=== PATIENT | female | born 1955 | race Caucasian/White ===

== ENCOUNTER 2020-01-24 09:21 | Outpatient (CLI) | payer BC, SELFPAY ==
--- NOTE | ~2020-01-24 | MM_ITS ---
EXAMINATION: MM screening jessie BI w cricket HISTORY: Screening mammogram TECHNIQUE: Craniocaudal and mediolateral oblique 3-D tomosynthesis images were obtained and synthetic 2-D images were generated. Bilateral rotated lateral CC views. ....CAD analysis was submitted and in terpreted. COMPARISON: 01/21/2019, 01/01/2018, 12/30/2016 bilateral digital screening mammogram examinations BREAST PARENCHYMAL COMPOSITION: The breasts are heterogeneously dense, which may obscure small masses . FINDINGS: There is no evidence of suspicious mass, calcification, or architectural distortion to sugg est malignancy in either breast. There has been no suspicious interval change. IMPRESSION: 1. No mammographic evidence of malignancy. 2. Recommend routine screening mammography in one year. BI-RADS Category 1: Negative Reviewed, dictated and finalized at location A.
== END 2020-01-24 09:22 | disposition home or self-care (01) ==
PROVIDERS: PCP Family Medicine; Visit Provider Family Medicine
DX: Z12.31 Encounter for screening mammogram for malignant neoplasm of breast (principal)
CPT/HCPCS: 77063; 77067

== ENCOUNTER 2020-09-29 13:38 | Outpatient (CLI) | payer MEDICARE, BC, SELFPAY ==
--- NOTE | ~2020-09-29 | XR_ITS ---
XR pelvis min 3V DATE: 09/29/2020 14:05 INDICATION: Pelvic pain TECHNIQUE: AP and oblique views of pelvis COMPARISON: None FINDINGS: There is minimal anterior offset of the left pubic symphysis compared to the right. The sac roiliac joints appear normal. Hip joints are symmetric and well preserved. No pelvic fracture or bone destruction is detected. There is mild levoscoliosis and degenerative disc disease at the lumbar spine. Bilateral calcified pelvic phleboliths. IMPRESSION: No significant abnormality of the pelvis Reviewed, dictated and finalized at location B. EL MACHINE OPERATOR
--- NOTE | ~2020-09-29 | CT_ITS ---
EXAMINATION: CT pelvis wo con DATE: 09/29/2020 14:12 INDICATION: Left hip bursitis. TECHNIQUE: Computed tomography (CT) of the pelvis was performed without intravenous contrast. Automat ed exposure control and iterative reconstruction technique were employed. The dose-length product was 183.13 mGy-cm. COMPARISON: Pelvis radiograph 09/29/2020 FINDINGS: There is lumbar levocurvature and moderate spondylosis. No fracture. There is a hemangioma in S1. There is mild osteoarthritis of the hips. There is mild bilateral trochanteric bursitis. IMPRESSION: 1. Mild bilateral trochanteric bursitis. 2. Mild osteoarthritis of the hips. Reviewed, dictated and finalized at location A. WELDER APPRENTICE
== END 2020-09-29 13:39 | disposition home or self-care (01) ==
PROVIDERS: PCP Family Medicine; Visit Provider Family Medicine
DX: M71.552 Other bursitis, not elsewhere classified, left hip (principal); M16.12 Unilateral primary osteoarthritis, left hip
CPT/HCPCS: 72190; 72192

== ENCOUNTER 2021-01-25 09:03 | Outpatient (CLI) | payer MEDICARE, SELFPAY ==
--- NOTE | ~2021-01-25 | MM_ITS ---
EXAMINATION: MM screening jessie BI w cricket HISTORY: Screening TECHNIQUE: Craniocaudal and mediolateral oblique 3-D tomosynthesis images were obtained and synthetic 2-D images were generated. CAD analysis was submitted and interpreted. COMPARISON: Comparison to multiple prior studies sequentially, with oldest reviewed study dated 12/2015. BREAST PARENCHYMAL COMPOSITION: The breasts are heterogenously dense, which may obscure small masses. FINDINGS: There is no evidence of suspicious mass, calcification, or architectural distortion to sugg est malignancy in either breast. There has been no suspicious interval change. IMPRESSION: 1. No mammographic evidence of malignancy. 2. Recommend routine screening mammography in one year. BI-RADS Category 1: Negative Reviewed, dictated and finalized at location A.
== END 2021-01-25 09:04 | disposition home or self-care (01) ==
LOC: ANHIMG 09:06
PROVIDERS: PCP Family Medicine; Visit Provider Family Medicine
DX: Z12.31 Encounter for screening mammogram for malignant neoplasm of breast (principal)
CPT/HCPCS: 77063; 77067

== ENCOUNTER 2022-01-28 07:23 | Outpatient (CLI) | payer MEDICARE, SELFPAY ==
--- NOTE | ~2022-01-28 | MM_ITS ---
EXAMINATION: MM screening jessie BI w cricket HISTORY: Screening mammogram TECHNIQUE: Craniocaudal and mediolateral oblique 3-D tomosynthesis images were obtained and synthetic 2-D images were generated. Bilateral rotated lateral CC views. CAD analysis was submitted and interp reted. COMPARISON: 01/25/2021, 01/24/2020, 01/12/2019 bilateral screening mammogram examinations BREAST PARENCHYMAL COMPOSITION: The breasts are heterogeneously dense, which may obscure small masses . FINDINGS: There are bilateral mammographic asymmetries. Bilateral diagnostic mammography is recommend ed, with ultrasound if required IMPRESSION: 1. Bilateral mammographic asymmetries 2. Bilateral diagnostic mammography is recommended, with ultrasound if required BI-RADS Category 0: Incomplete: Needs additional imaging evaluation. Reviewed, dictated and finalized at location A.
--- NOTE | ~2022-01-28 | DEXA_ITS ---
Bone Density Report Name: RACHNA PETTY Age: 66 Sex: Female Ethnicity: White Date of : 1955 Indication: osteopenia; prior fracture; hysterectomy; postmenopausal Referring Provider: SAMANTHA PRADHAN Study: Bone densitometry was performed. Exam Date: January 28, 2022 Accession number: [id number] Bone Density: Region BMD T-score Z-score Classification AP Spine(L1, L2) 0.883 -0.9 0.9 Normal Femoral Neck (Left) 0.700 -1.3 0.2 Osteopenia Total Hip (Left) 0.721 -1.8 -0.5 Osteopenia Femoral Neck (Right) 0.703 -1.3 0.3 Osteopenia Total Hip (Right) 0.761 -1.5 -0.2 Osteopenia Total Hip Mean 0.741 -1.7 -0.4 Osteopenia World Health Organization criteria for BMD impression classify patients as: Normal (T-score at or above -1.0), Osteopenia (T-score between -1.0 and -2.5), or Osteoporosis (T-score at or below -2.5). 10-year Fracture Risk(1): Major Osteoporotic Fracture 14% Hip Fracture 1.4% Reported Risk Factors: [place] (), Neck BMD=0.700, BMI=24.3, previous fracture (1) FRAX(R) Version 3.08. Fracture probability calculated for an untreated patient. Fracture probability may be lower if the patient has received treatment. Previous Exams: Region Exam Age BMD T-score BMD Change BMD Change Date g/cm2 vs Baseline vs Previous AP Spine (L1-L2) 01/28/2022 66 0.883 -0.9 0.063 (7.7%)* 0.063 (7.7%)* 01/01/2018 62 0.819 -1.5 Total Hip(Left) 01/28/2022 66 0.721 -1.8 0.006 (0.9%) 0.006 (0.9%) 01/01/2018 62 0.715 -1.9 Total Hip(Right) 01/28/2022 66 0.761 -1.5 0.005 (0.6%) 0.005 (0.6%) 01/01/2018 62 0.756 -1.5 *Denotes significance at 95% confidence level, LSC for AP Spine = 0.022 g/cm2, LSC for Total Hip = 0.027 g/cm2 Clinical Information Provided by Patient: Has had a low trauma fracture Has used the following medications: Vitamin D, Calcium Has the following medical conditions: Hysterectomy Patient maximum height was 63 Menopause Age: 35 Drinks caffeinated beverages Onset of menses at age 14 Number of children 3 Impression: The patient has low bone mass, based on the Left Total Hip T-score. The patient has an estimated ten-year risk of hip fracture of 1.4% and an estimated ten-year risk of major fracture of 14%, based on the WHO FRAX algorithm. The patient has risk factors, including: previous fracture. No significant bone loss was observed. Discussion: BONE DENSITY IS LOW AT ONE OR MORE SKEL
== END 2022-01-28 07:24 | disposition home or self-care (01) ==
PROVIDERS: PCP Family Medicine; Visit Provider Family Medicine
DX: Z12.31 Encounter for screening mammogram for malignant neoplasm of breast (principal); Z78.0 Asymptomatic menopausal state; R92.8 Other abnormal and inconclusive findings on diagnostic imaging of breast; M85.852 Other specified disorders of bone density and structure, left thigh; M85.851 Other specified disorders of bone density and structure, right thigh
CPT/HCPCS: 77063; 77067; 77080

== ENCOUNTER 2022-02-02 12:01 | Outpatient (CLI) | payer MEDICARE, SELFPAY ==
--- NOTE | ~2022-02-02 | MMUS_ITS ---
EXAMINATION: MM diagnostic jessie BI w cricket, US breast BI complete HISTORY: Follow-up bilateral breast asymmetries TECHNIQUE: Additional 3-D tomosynthesis images of the breasts were performed and synthetic 2-D images were generated. CAD analysis was submitted and interpreted. High resolution bilateral complete breas t ultrasound was performed. COMPARISON: Comparison to multiple prior studies sequentially, with oldest reviewed study dated 03/2017. BREAST PARENCHYMAL COMPOSITION: The breasts are heterogenously dense, which may obscure small masses FINDINGS: MAMMOGRAPHIC FINDINGS: There are no suspicious masses, calcifications or architectural distortion in either breast to sugges t malignancy. ULTRASOUND: Complete bilateral US of all 4 quadrants of the breasts and retroareolar region was reviewed. Right breast ultrasound: At 6:00, 3 cm from the nipple, there is a 2.5 mm cyst. Left breast: At 8:00, 2 cm from the nipple, there is a cluster of microcysts measuring 7 x 6 x 2 mm, benign. IMPRESSION: 1. No evidence for malignancy in either breast. 2. Routine yearly screening mammogram and regular clinical breast examination are recommended. BI-RADS Category 2: Benign finding(s). Reviewed, dictated and finalized at location A. IMPRESSION: 1. No evidence for malignancy in either breast. 2. Routine yearly screening mammogram and regular clinical breast examination a re recommended. BI-RADS Category 2: Benign finding(s).
== END 2022-02-02 12:02 | disposition home or self-care (01) ==
LOC: ANHIMG 12:02
PROVIDERS: PCP Family Medicine; Visit Provider Physician Assistant
DX: R92.8 Other abnormal and inconclusive findings on diagnostic imaging of breast (principal)
CPT/HCPCS: 76641; 77062; 77066; G0279

== ENCOUNTER 2022-04-26 07:27 | Outpatient (CLI) | payer MEDICARE, SELFPAY ==
--- NOTE | ~2022-04-26 | MR_ITS ---
EXAMINATION: MR pelvis wo con DATE: 04/26/2022 08:29 INDICATION: Bilateral hip and leg pain. TECHNIQUE: Magnetic resonance imaging (MRI) of the dose was performed without intravenous contrast. S equences included axial T1-weighted FSE, axial T2-weighted FS FSE, axial fluid sensitive FSE STIR, co koffi T1-weighted FSE, coronal T2-weighted FS FSE, sagittal T1-weighted FSE, sagittal T2-weighted FS FSE and sagittal fluid sensitive FSE STIR. COMPARISON: Radiographs dated 04/14/2022 FINDINGS: 5 degrees lumbar levocurvature. And 3 mm retrolisthesis L3 on L4 and 6 mm anterolisthesis L4 on L5. L umbar spondylosis with moderate disc height loss at both L3-L4 and L4-L5. Lower lumbar facet osteoart hritis, severe on the left at L4-L5 and moderate severity at the remaining facet joints from L3-L4 th rough L5-S1. Moderate bilateral neural foraminal stenosis at L3-L4 and L4-L5. Mild to moderate bilate ral neural from stenosis at L2-L3 and. Minimal neural from stenosis bilaterally at L5-S1. There is na rrowing of the lateral recesses bilaterally at L4-L5 which exerts mass effect upon the traversing chantelle ateral S1 nerve roots. Normal alignment at the hips and pelvis. No fracture or suspected avascular necrosis. T1 and T2 hyper intense hemangioma at S1. Marrow signal is otherwise normal throughout. Bilateral hip joint spaces ap pear relatively preserved with normal acetabular labrum. Symmetric physiologic amount of fluid in bot h hip joints. The bilateral iliopsoas, proximal hamstring and gluteal tendons are normal. No abnormal increased fluid signal at the greater trochanters to suggest trochanteric bursitis. Large amount of stool at the cecum. Visualized bowels are otherwise unremarkable. The uterus is not identified and vincent s likely been surgically resected. Bladder is normal. No pathologically enlarged pelvic or inguinal l ymphadenopathy. IMPRESSION: 1. Mild lumbar levocurvature with moderate spondylosis. 2. Normal bilateral hips with no trochanteric bursitis. Reviewed, dictated and finalized at location A.
== END 2022-04-26 07:28 | disposition home or self-care (01) ==
PROVIDERS: PCP Family Medicine; Visit Provider Orthopaedic Surgery
DX: M70.72 Other bursitis of hip, left hip (principal); M70.71 Other bursitis of hip, right hip; M47.896 Other spondylosis, lumbar region; M16.0 Bilateral primary osteoarthritis of hip
CPT/HCPCS: 72195

== ENCOUNTER 2023-01-16 10:05 | Day surgery (SDC) | payer MEDICARE, SELFPAY ==
[2022-12-20 14:18] VITALS: BMI 24.7
[2023-01-02 12:55] VITALS: BMI 23.8
[2023-01-16 10:25] VITALS: BP 115/81; PULSE 69; RESP 20; TEMP 36.6; O2SAT 99
[2023-01-16] MEDS: LACTATED RINGERS 1,000 ML 150 ML IV CONT (10:41)
--- NOTE | 2023-01-16 10:59 | WPDANESEPPF ---
Anes - Initial Pre Proc Eval Procedure: Operation Date: 01/16/23 11:30 Proposed Procedures p Diagnostic Colonoscopy - Dex Kaplan MD Date/Time: 01/16/23 10:59 Surgeon: Dex Kaplan MD Pre Op Diagnosis: Family HX of Malignant Neoplasm of Digestive Organ Patient Data Age: 67 Gender: F Height: 1.6 m Weight: 62 kg Last Vital Signs Temp 36.6 C 01/16/23 10:25 Pulse 69 01/16/23 10:25 Resp 20 01/16/23 10:25 BP 115/81 01/16/23 10:25 Pulse Ox 99 01/16/23 10:25 O2 Del Method Room Air 01/16/23 10:25 Allergies Allergy/AdvReac Type Severity Reaction Status Date / Time codeine Allergy Unknown Nausea Verified 01/16/23 10:42 dextromethorphan Allergy Unknown Nausea Verified 01/16/23 10:42 [Robafen DM Cough-Chest Congest] erythromycin base Allergy Unknown Nausea Verified 01/16/23 10:42 guaifenesin Allergy Unknown Other Verified 01/16/23 10:42 minocycline Allergy Unknown neurologic Verified 01/16/23 10:42 pseudoephedrine Allergy Unknown Nausea Verified 01/16/23 10:42 [Virtussin DAC] Home Medications Medication Instructions Recorded Confirmed Type biotin 5 mg capsule 5 mg PO DAILY 03/03/22 01/16/23 History calcium carbonate 600 mg-vitamin 1 cap PO DAILY 03/03/22 01/16/23 History D3 12.5 mcg (500 unit) capsule (Calcium 600 with Vitamin D3) lactobacillus combination no.9 4 4,000 mmu cells PO DAILY 03/03/22 01/16/23 History billion cell capsule (Adult 50 Plus Probiotic) multivitamin (Daily Multi-Vitamin 1 tablet PO DAILY 03/03/22 01/16/23 History tablet) fluoxetine 20 mg capsule See Rx Instructions .Route 04/12/22 01/16/23 Rx .COMPLEX #90 caps levothyroxine 75 mcg tablet See Rx Instructions .Route 10/24/22 01/16/23 Rx .COMPLEX #90 tabs sodium,potassium,mag sulfates 17.5 See Rx Instructions PO .COMPLEX 12/20/22 01/16/23 Rx gram-3.13 gram-1.6 gram oral soln #354 mL (Suprep Bowel Prep Kit) estradiol 0.5 mg tablet 0.5 mg PO 3XW 01/02/23 01/16/23 History Patient hx anesthesia problems: none Family hx anesthesia problems: none Results Review: All pre-operative results and documents have been reviewed as part of the pre-operative evaluation. [facility] Past Medical History Medical History Anxiety Chest pain Hip pain, bilateral History of postoperative nausea and vomiting History of stress test Hypothyroidism Retention cyst of tonsil Right knee pain Right rotator cuff tendinitis Tonsil stone Tonsillitis Surgical History Surgical History H/O elbow surgery H/O: section H/O: hysterectomy Family History Family History Father Diabetes mellitus Family history of coronary artery disease Family history of cardiovascular disease Acute myocardial infarction Mother Patient's mother is , Onset Age: 78 Carcinoma of colon Diabetes mellitus Hypertension Family history of cardiovascular disease Social History Social History Smoking status: Never smoker Alcohol intake: never Substance use: never Substance use type: does not use Living arrangements: with family Spiritual care concerns: No Anes - Eval Final PreProcedure Day of Procedure 01/16/23 10:59 Patient weight: normal Heart: regular rate and rhythm Lungs: clear to auscultation Airway: Mallampati scale class II Neurological: alert and oriented Last oral intake: >/= 8 hours ASA classification: II Emergent: no Anesthetic plan: proceed Anesthesia type and monitoring: general GIVS and standard monitoring Results Review: All pre-operative results and documents have been reviewed as part of the pre-operative evaluation. Informed Consent: The patient's anesthetic plan and its attendant risks and benefits were discussed with nj
--- NOTE | 2023-01-16 11:03 | PM.HPGS ---
History of Present Illness History of Present Illness Consent: Risks, benefits, and alternatives have been discussed and questions answered. Patient agrees to proceed with procedure. Chief complaint: Family HX of Malignant Neoplasm of Digestive Organ Narrative: Tiki Phillips is a 67 year old female Presents for colonoscopy. Patient reports that her own weight appetite and bowel movements are normal. Patient denies abdominal pain. She has had no bleeding. Family history is significant that her mother had colon cancer. Patient presents today for surveillance colonoscopy. Previous exam 5 years ago was unremarkable. Review of Systems Review of Systems: Review of systems noncontributory. [facility] Past Medical History Medical History Anxiety Chest pain Hip pain, bilateral History of postoperative nausea and vomiting History of stress test Hypothyroidism Retention cyst of tonsil Right knee pain Right rotator cuff tendinitis Tonsil stone Tonsillitis Surgical History Surgical History H/O elbow surgery H/O: section H/O: hysterectomy Family History Family History Father Diabetes mellitus Family history of coronary artery disease Family history of cardiovascular disease Acute myocardial infarction Mother Patient's mother is , Onset Age: 78 Carcinoma of colon Diabetes mellitus Hypertension Family history of cardiovascular disease Social History Social History Smoking status: Never smoker Alcohol intake: never Substance use: never Substance use type: does not use Living arrangements: with family Spiritual care concerns: No Meds Home Medications and Allergies Home Medications Medication Instructions Recorded Confirmed Type biotin 5 mg capsule 5 mg PO DAILY 03/03/22 01/16/23 History calcium carbonate 600 mg-vitamin 1 cap PO DAILY 03/03/22 01/16/23 History D3 12.5 mcg (500 unit) capsule (Calcium 600 with Vitamin D3) lactobacillus combination no.9 4 4,000 mmu cells PO DAILY 03/03/22 01/16/23 History billion cell capsule (Adult 50 Plus Probiotic) multivitamin (Daily Multi-Vitamin 1 tablet PO DAILY 03/03/22 01/16/23 History tablet) fluoxetine 20 mg capsule See Rx Instructions .Route 04/12/22 01/16/23 Rx .COMPLEX #90 caps levothyroxine 75 mcg tablet See Rx Instructions .Route 10/24/22 01/16/23 Rx .COMPLEX #90 tabs sodium,potassium,mag sulfates 17.5 See Rx Instructions PO .COMPLEX 12/20/22 01/16/23 Rx gram-3.13 gram-1.6 gram oral soln #354 mL (Suprep Bowel Prep Kit) estradiol 0.5 mg tablet 0.5 mg PO 3XW 01/02/23 01/16/23 History Allergies Allergy/AdvReac Type Severity Reaction Status Date / Time codeine Allergy Unknown Nausea Verified 01/16/23 10:42 dextromethorphan Allergy Unknown Nausea Verified 01/16/23 10:42 [Robafen DM Cough-Chest Congest] erythromycin base Allergy Unknown Nausea Verified 01/16/23 10:42 guaifenesin Allergy Unknown Other Verified 01/16/23 10:42 minocycline Allergy Unknown neurologic Verified 01/16/23 10:42 pseudoephedrine Allergy Unknown Nausea Verified 01/16/23 10:42 [Virtussin DAC] Vital Signs Vital Signs - 24 hr 01/16/23 10:25 Temperature 97.9 F Pulse Rate 69 Respiratory Rate 20 Blood Pressure 115/81 Pulse Oximetry 99 Oxygen Delivery Room Air Exam Narrative: Physical exam reveals patient to be alert. Vital signs stable. HEENT exam is unremarkable. Patient is anicteric. Lungs are clear to auscultation and percussion. Heart is without murmur or extra sounds. Abdomen bowel sounds present soft nontender with no organomegaly. Digital external rectal exam is normal. Assessment and Plan Assessment and plan (1) FH: colon cancer: Code(s): Z80.0
[2023-01-16 11:22] VITALS: BP 89/49; PULSE 57; RESP 18; O2SAT 99
--- NOTE | 2023-01-16 11:30 | WPDANESPN ---
Anes - Prog Note Post-Op Date/Time: 01/16/23 11:30 Cardiovascular status: normal Respiratory status: normal Airway patency: baseline Mental status: baseline Post-Op hydration status: normal Vital Signs: Last Vital Signs Temp 36.6 C 01/16/23 10:25 Pulse 69 01/16/23 10:25 Resp 20 01/16/23 10:25 BP 115/81 01/16/23 10:25 Pulse Ox 99 01/16/23 10:25 O2 Del Method Room Air 01/16/23 10:25 Pain Score (VAS): 0/10 I/O: Intake & Output 01/15/23 01/16/23 01/16/23 23:59 07:59 15:59 Intake Total 500 Balance 500 Patient Feedback: Patient satisfied with anesthetic care.
[2023-01-16 11:32] VITALS: BP 100/55; PULSE 61; RESP 18; O2SAT 100
[2023-01-16 11:42] VITALS: BP 111/68; PULSE 61; RESP 20; O2SAT 100
== END 2023-01-16 11:57 | disposition home or self-care (01) ==
PROVIDERS: PCP Family Medicine; Visit Provider Internal Medicine Gastroenterology
PROC: 0DJD8ZZ Inspection of Lower Intestinal Tract, Via Natural or Artificial Opening Endoscopic (ICD-10-PCS; CPT 45378; principal; 2023-01-16 11:30)
DX: Z80.0 Family history of malignant neoplasm of digestive organs (principal)
CPT/HCPCS: 45378

== ENCOUNTER 2023-03-16 07:43 | Outpatient (CLI) | payer MEDICARE, SELFPAY ==
--- NOTE | ~2023-03-16 | MM_ITS ---
EXAMINATION: MM screening jessie BI w cricket HISTORY: Screening mammogram TECHNIQUE: Craniocaudal and mediolateral oblique 3-D tomosynthesis images were obtained and synthetic 2-D images were generated. CAD analysis was submitted and interpreted. COMPARISON: 02/02/2022 bilateral diagnostic mammography and bilateral complete breast ultrasound exami nation 01/28/2022, 02/21/2021, 01/24/2020 lateral screening mammogram examinations BREAST PARENCHYMAL COMPOSITION: The breasts are heterogeneously dense, which may obscure small masses . FINDINGS: There is no evidence of suspicious mass, calcification, or architectural distortion to sugg est malignancy in either breast. There has been no suspicious interval change. IMPRESSION: 1. No mammographic evidence of malignancy. 2. Recommend routine screening mammography in one year. BI-RADS Category 1: Negative Reviewed, dictated and finalized at location A.
== END 2023-03-16 07:44 | disposition home or self-care (01) ==
LOC: ANHIMG 07:44
PROVIDERS: PCP Family Medicine; Visit Provider Family Medicine
DX: Z12.31 Encounter for screening mammogram for malignant neoplasm of breast (principal)
CPT/HCPCS: 77063; 77067

== ENCOUNTER 2023-04-06 09:10 | Outpatient (CLI) | payer MEDICARE, SELFPAY ==
--- NOTE | 2023-04-11 11:55 | P.PCNHOL_ITS ---
Holter/Event Monitor Holter/Event Monitor Date of procedure: 04/06/23 Holter/Event Procedure: 48 Hr Holter Monitor Indications: Palpitations Conclusion: 1. 48 hour holter monitor on 04/06/23. 2. Underlying rhythm is sinus rhythm. HR range 44-132 bpm; average 68 bpm. 3. There are 66 premature supraventricular complexes, 3 supraventricular couplets and 1 supraventricular triplet, 3 supraventricular trigeminy. No sup raventricular tachycardia. 4. There are 272 premature ventricular complexes. No ventricular tachycardia. 5. No sinoatrial or atrioventricular blocks. No significant pauses greater than 2 seconds. 6. No symptoms available for correlation.
== END 2023-04-06 09:11 | disposition home or self-care (01) ==
LOC: ANHCARD 09:10
PROVIDERS: PCP Family Medicine; Visit Provider Family Medicine
DX: R06.02 Shortness of breath (principal); R00.1 Bradycardia, unspecified; R55 Syncope and collapse
CPT/HCPCS: 93225; 93226

== ENCOUNTER → 2023-06-13 13:43 | Outpatient (CLI) | payer MEDICARE, SELFPAY ==
--- NOTE | ~2023-06-13 | XR_ITS ---
EXAMINATION: XR shoulder LT min 2V INDICATION: Left shoulder pain TECHNIQUE: Four views of the left shoulder are submitted. COMPARISON: None FINDINGS: Normal alignment. No fracture. Glenohumeral and acromioclavicular joint spaces are normal. Soft tissues are unremarkable. IMPRESSION: 1. No acute osseous abnormality. Reviewed, dictated and finalized at location L.
== END ==
PROVIDERS: PCP Physician Assistant; Visit Provider Physician Assistant
DX: M25.512 Pain in left shoulder (principal)
CPT/HCPCS: 73030

== ENCOUNTER 2023-12-22 00:40 | Day surgery (SDC) | payer MEDICARE, SELFPAY ==
[2023-12-20 12:35] VITALS: BMI 23.4
--- NOTE | 2023-12-20 12:56 | PC.NURSE ---
Report to the Outpatient Waiting Room, entrance under the green pavilion located off [facility], at time ___6:00AM____ on date __12/22/23 . Planned Procedure Time: __7:30AM . Time changes happen often and if your time is changed the preop area will call you the afternoon before. - You and your visitor will be asked to self-screen and do not enter if you have any COVID symptoms. - A mask is optional within the hospital at this time. Patients may have clear liquids (water, carbonated beverages, clear teas, apple juice) until 3 hours prior to surgery with a maximum of 20 ounces. - No food from midnight until time of surgery. Take the following medications with a SIP of water the morning of surgery: FLUOXETINE & LEVOTHYROXINE DO NOT STOP ANY OF YOUR OTHER PRESCRIPTION MEDICATIONS PRIOR TO SURGERY ?EXCEPT THE FOLLOWING Medications to discontinue per physician ____HOLD ALL VITAMINS/SUPPLEMENTS 3 DAYS PRE-OP PER ANESTHESIA Date to take last dose 12/18/23 Please no make-up, nail ugandan, hairspray, perfume, deodorant, or body powder the day of surgery. No jewelry (including any body piercings) or valuables the day of surgery, leave them at home. Please take a shower or bath the night before, or the morning of, surgery with an antibacterial soap. Wear comfortable, loose fitting clothing. - Jewelry must be removed prior to entering the operating room. Rings and piercings that are not removed may be cut off. - The hospital will not accept responsibility for valuables. - Please leave all valuables, including medications, at home the day of surgery. If you are going home after surgery, a licensed school bus driver/teacher assistant must drive you home. - NO public transportation without another adult if you receive anesthesia. - We recommend that an adult stay with you for 24 hours following discharge. - We also recommend that you do not drive, make important decision, drink alcoholic beverages, or take any drugs that were not prescribed by your health care provider for at least 24 hours after your discharge time. Follow any additional instructions given to you from your surgeon. If you or anyone in your household have experienced Covid symptoms in the past week, please notify your surgeon or the nurse liaison at the phone number below for possible testing. Telephone instructions given to ____PATIENT and asked if any additional questions and then verbalized understanding. Patient advised to call surgeon office or pre surgery nurse liaison [phone] if any additional questions.
[2023-12-22] VITALS (8 sets, daily range): BP systolic 111–149; BP diastolic 48–92; PULSE 62–86; RESP 10–16; TEMP 36.1–36.2; O2SAT 94–100
--- NOTE | ~2023-12-22 | XR_ITS ---
XR surgery orthopedic Indication: Right foot surgery TECHNIQUE: Fluoroscopy used during right foot surgery. performed by [Olu Degroot JR MD] on 12/22/2023. 9 seconds of fluoroscopy with 4 fluoroscopic images captured. FINDINGS: Correlate with procedure note. There are changes of fusion at the second proximal interpha langeal joint. There are osteotomy changes of the second metatarsal neck. IMPRESSION: Fluoroscopy used during right foot surgery. Reviewed, dictated and finalized at location B.
[2023-12-22] MEDS: LACTATED RINGERS 1,000 ML 30 ML IV CONT ×2 (06:35→08:36)
--- NOTE | 2023-12-22 06:55 | WPDANESEPPF ---
Anes - Initial Pre Proc Eval Procedure: Operation Date: 12/22/23 07:30 Proposed Procedures p Hammertoe Repair Second Digit Right Foot - Olu Degroot JR, MD s Jeimy Shortening Second Metatarsal Osteotomy Right Foot, Plantar Plate Repair Second Digit Right Foot - Olu Degroot JR, MD Date/Time: 12/22/23 06:55 Surgeon: Olu Degroot JR, MD Pre Op Diagnosis: Hammertoe Second Digit Right Foot Patient Data Age: 68 Gender: F Height: 1.61 m Weight: 62.4 kg Last Vital Signs Temp 36.1 C L 12/22/23 06:41 Pulse 62 12/22/23 06:41 Resp 16 12/22/23 06:41 BP 111/48 L 12/22/23 06:41 Pulse Ox 99 12/22/23 06:41 O2 Del Method Room Air 12/22/23 06:41 Allergies Allergy/AdvReac Type Severity Reaction Status Date / Time codeine AdvReac Unknown Nausea Verified 12/20/23 12:30 dextromethorphan AdvReac Unknown JITTERY Verified 12/20/23 12:30 [Robafen DM Cough-Chest FEELING Congest] erythromycin base AdvReac Unknown Nausea Verified 12/20/23 12:30 guaifenesin AdvReac Unknown JITTERY Verified 12/20/23 13:01 FEELING pseudoephedrine AdvReac Unknown Nausea, Verified 12/20/23 12:30 [Virtussin DAC] JITTERY FEELING Home Medications Medication Instructions Recorded Confirmed Type biotin 5 mg capsule 5 mg PO DAILY 03/03/22 12/22/23 History calcium carbonate 600 mg-vitamin 1 cap PO DAILY 03/03/22 12/22/23 History D3 12.5 mcg (500 unit) capsule (Calcium 600 with Vitamin D3) lactobacillus combination no.9 4 4,000 mmu cells PO DAILY 03/03/22 12/22/23 History billion cell capsule (Adult 50 Plus Probiotic) multivitamin (Daily Multi-Vitamin 1 tablet PO DAILY 03/03/22 12/22/23 History tablet) estradiol 0.5 mg tablet 0.5 mg PO 3XW #36 tabs 12/06/23 12/22/23 Rx acetaminophen 500 mg capsule 1,000 mg PO Q6H PRN Pain 12/20/23 12/22/23 History fluoxetine 20 mg capsule 20 mg PO QAM 12/20/23 12/22/23 History levothyroxine 75 mcg tablet 75 mcg PO QAM 12/20/23 12/22/23 History Patient hx anesthesia problems: post op nausea/vomiting Family hx anesthesia problems: none Results Review: All pre-operative results and documents have been reviewed as part of the pre-operative evaluation. [facility] Past Medical History Medical History Anxiety Chest pain Hip pain, bilateral History of postoperative nausea and vomiting History of stress test Hypothyroidism Retention cyst of tonsil Right knee pain Right rotator cuff tendinitis Tonsil stone Tonsillitis Surgical History Surgical History H/O elbow surgery H/O: section H/O: hysterectomy Family History Family History Father Diabetes mellitus Family history of coronary artery disease Family history of cardiovascular disease Acute myocardial infarction Mother Patient's mother is , Onset Age: 78 Carcinoma of colon Diabetes mellitus Hypertension Family history of cardiovascular disease Social History Social History Smoking status: Never smoker Second hand tobacco smoke exposure: No Alcohol intake: never Substance use: never Substance use type: does not use Do You Feel Safe in your Home?: Yes Lack of Transportation: No Lack of Food: Never True Current Housing: I Have Housing Concerned About Future Housing: No Difficulty Paying Gas/Electric Bills: No Difficulty Paying for Meds: No Currently Unemployed: No Education: High School Diploma/GED Difficulty w/ Childcare or Family Care: No Living arrangements: with family Additional living arrangements comments: HUSB Spiritual care concerns: No Anes - Eval Final PreProcedure Day of Procedure 12/22/23 06:55 Patient weight: normal Heart: regular rate and rhythm Lungs: clear to aus
[2023-12-22] MEDS: SCOPOLAMINE 1 MG PATCH 1 PATCH TRANSDERM (07:09)
--- NOTE | 2023-12-22 07:12 | WPDHPUPDATE1 ---
History and Physical Update Update Date/Time: 12/22/23 07:12 History and Physical has been reviewed, including an updated exam of the patient. There are NO changes in the patient's condition. Risks, benefits, and alternatives have been discussed and questions answered. Patient agrees to proceed with procedure.
[2023-12-22] MEDS: ceFAZolin 2 GM/D5W 50 ML 2 GM/50 ML BAG IVPB (07:29)
[2023-12-22] MEDS: LIDOCAINE HCL 2% LOCAL INJ 20 ML VIAL 10 ML INFILTRATE (07:58)
--- NOTE | 2023-12-22 08:47 | W.PM.PROC2 ---
Procedure Note - Detailed Date of Procedure 12/22/23 Pre-op Diagnosis Hammertoe Second Digit Right Foot Metatarsalgia sub second metatarsal phalangeal joint right foot Predislocation syndrome second digit right foot Post-op Diagnosis Same Procedure Performed 1. Hammertoe repair second digit right foot 2. Jeimy Shortening second metatarsal osteotomy right foot 3. Primary Plantar Plate Repair second digit right foot Surgeon Olu Degroot JR, MATTHEW Anesthesia General and Local Description of Procedure PROCEDURE IN DETAIL: Under mild sedation, the patient was brought into the operating room, placed on the operating table in supine position. A pneumatic ankle tourniquet was placed about the patient's ipsilateral ankle. Following general LMA, a local anesthetic block was obtained about the foot and ankle utilizing 20 cc of 2% Lidocaine plain and 0.5% Marcaine plain. The foot was then scrubbed, prepped, and draped in the usual aseptic manner. An Esmarch bandage was then used to exsanguinate the patient's foot and the pneumatic ankle tourniquet was then inflated. Surgery began in the following manner: Attention was directed to the second digit of the foot where a 5 cm incision was made from starting just distal to the interphalangeal joint and extending to the 2nd metatarsal shaft. A transverse tenotomy was created dorsal to the proximal interphalangeal joint, next the head of the proximal phalanx was resected with an oscillating saw blade, the middle phalanx cartilage was resected with a curette. The dissection was continued to the dorsal aspect of the 2nd metatarsal head of the foot through the same incision just medial to the extensor tendon to the 2nd digit. The incision was continued deep down through the subcutaneous tissues using sharp and blunt dissection. All bleeders were cauterized as necessary. A full-length periosteal incision was made overlying the 2nd metatarsal head distally, a 15 blade was used to expose the entire 2nd metatarsal head and a McGlammary was used to free the plantar plate from the plantar surface of the 2nd metatarsal. Next, a sagittal bone saw was used to make an osteotomy starting along the dorsal aspect of the articular surface to the head of the 2nd metatarsal in a parallel fashion to the shaft of the 2nd metatarsal. After this osteotomy was completed, the head of the 2nd metatarsal was pushed proximally and held in place with a k wire. The lateral collateral ligaments were freed from the medial and lateral aspect of the head of the metatarsal. The plantar plate was visualized after a joint distractor was used to expose the 2nd metatarsal phalangeal joint plantarly. Utilizing the Arthrex Scorpion system the fibertape suture was used to make a horizontal mattress stitch to grasp the plantar plate and advance it during the repair. Next, two drill holes were made with standard technique for the Arthrex scorpion system starting dorsally and medial and lateral of the base of the proximal phalanx to the plantar aspect, a lasso system was used to pull the fibertape suture dorsally in a crossed fashion. Next, I implanted the Arthrex cannulated Dynanite size 14 mm hammertoe implant in a cannulated fashion using standard technique. Fluoroscopy was used to make sure that the digit and implant was appropriately positioned. Next, two Arthrex snapoff screws were driven from dorsal to plantar to fixate the Jeimy osteotomy site under fluoroscopy with excellent compression noted, a 13mm and a 11mm screw length was used. The second metatarsal length has improved significantly in regards to the parabola with the adjacent metatarsals. The 2nd digit was properly reduced no longer dislocated. The second digit was plantarflexed and a surgeon handknot was used to tie the plantar plate as it was advanced and tied atop the base of the proximal phalanx. The wound site was then flushed with copious amounts of sterile saline. Next, the pe
== END 2023-12-22 10:24 | disposition home or self-care (01) ==
PROVIDERS: PCP Family Medicine; Visit Provider Podiatrist Foot & Ankle Surgery
PROC: (CPT 28285; principal; 2023-12-22 07:30)
PROC: (CPT 28750; 2023-12-22 07:30)
DX: M20.41 Other hammer toe(s) (acquired), right foot (principal); M77.41 Metatarsalgia, right foot; M24.477 Recurrent dislocation, right toe(s); F41.9 Anxiety disorder, unspecified; E03.9 Hypothyroidism, unspecified
CPT/HCPCS: 28285; 28308; 28899; 99199; A9270; C1713; J0690; J1100; J1596; J2250; J2371; J2405; J2704; J3010; J7120

== ENCOUNTER 2024-03-04 10:14 | Outpatient (CLI) | payer MEDICARE, SELFPAY ==
--- NOTE | 2024-03-04 12:47 | WPDPFTINT ---
PFT Procedure Performed PFT Procedure Performed Plethysmography (Lung Vol) Diffusing Cap (DLCO) Flow Vol Loop Spirometry w/o Bronchodil PFT Interpretation This is a pulmonary function test with spirometry, plethysmography and diffusing capacity. The test was performed and results interpreted in accordance with the 2019 and 2005 ATS/ERS Task Force guidelines respectively using the Global Lung Function Initiative-2012 reference equations. Patient demonstrated good effort and cooperation. Reproducibility criteria were met. The quality of the spirometry maneuver was Grade A. Findings: Spirometry: The contour the inspiratory and expiratory flow tracing are normal. The FVC is 2.59 L, 92% predicted. The FEV1 is 2.11 L, 96% predicted. The FEV1: FVC ratio is 82%. Plethysmography: The total lung capacity is 4.56 L, 93% predicted. The functional residual capacity is 2.56 L, 92% predicted. The residual volume is 1.73 L, 82% predicted. Diffusing capacity: The diffusing capacity unadjusted for hemoglobin and carboxyhemoglobin is 13.4, 66% predicted. The diffusing capacity adjusted for alveolar volume is 3.73, 86% predicted. Impression: The spirometry is normal without evidence of an obstructive abnormality. There is no significant improvement after inhaling a single dose of albuterol. The lung volumes are normal. The diffusing capacity unadjusted for hemoglobin and carboxyhemoglobin is mildly decreased and normalizes when adjusted for alveolar volume. There are no prior studies for comparison
== END 2024-03-04 10:15 | disposition home or self-care (01) ==
LOC: ANHPFT 10:14
PROVIDERS: PCP Family Medicine; Visit Provider Internal Medicine Cardiovascular Disease
DX: R06.09 Other forms of dyspnea (principal)
CPT/HCPCS: 94375; 94726; 94729

== ENCOUNTER 2024-08-13 12:36 | Outpatient (CLI) | payer MEDICARE, SELFPAY ==
--- NOTE | ~2024-08-13 | DEXA_ITS ---
Bone Density Report Name: RACHNA PETTY Age: 68 Sex: Female Ethnicity: White Date of : 1955 Indication: postmenopausal; screening for osteoporosis; hysterectomy; Referring Provider: ROMI BERRY Study: Bone densitometry was performed. Exam Date: August 13, 2024 Accession number: [id number] Bone Density: Region BMD T-score Z-score Classification AP Spine(L1-L4) 1.008 -0.4 1.7 Normal Femoral Neck (Left) 0.718 -1.2 0.5 Osteopenia Total Hip (Left) 0.789 -1.3 0.2 Osteopenia Femoral Neck (Right) 0.721 -1.2 0.6 Osteopenia Total Hip (Right) 0.822 -1.0 0.5 Normal Total Hip Mean 0.805 -1.2 0.4 Osteopenia World Health Organization criteria for BMD impression classify patients as: Normal (T-score at or above -1.0), Osteopenia (T-score between -1.0 and -2.5), or Osteoporosis (T-score at or below -2.5). 10-year Fracture Risk(1): Major Osteoporotic Fracture 9.1% Hip Fracture 1.0% Reported Risk Factors: [place] (), Neck BMD=0.718, BMI=24.5 (1) FRAX(R) Version 3.08. Fracture probability calculated for an untreated patient. Fracture probability may be lower if the patient has received treatment. Clinical Information Provided by Patient: Has used the following medications: HRT (i.e. estrogen/hormone therapy), Vitamin D, Calcium Has the following medical conditions: Hysterectomy Patient maximum height was 63 Menopause Age: 35 Does not regularly consume dairy products Drinks caffeinated beverages Onset of menses at age 14 Number of children 3 Impression: The patient has low bone mass, based on the Left Total Hip T-score. The patient has an estimated ten-year risk of hip fracture of 1% and an estimated ten-year risk of major fracture of 9.1%, based on the WHO FRAX algorithm. Discussion: BONE DENSITY IS LOW AT ONE OR MORE SKELETAL SITES. This patient's lowest T-score is low at one or more skeletal sites. It meets the World Health Organization's (WHO) criteria for ?low bone mass? (T-score between -1.0 and -2.5). The patient's 10-year risk of fracture as calculated by FRAX is less than the threshold where pharmacological therapy is recommended by the National Osteoporosis Foundation (NOF). However, all treatment decisions require clinical judgment and consideration of individual patient factors, including patient preferences, comorbidities, previous drug use, risk factors not captured in the FRAX model (e.g., frailty, falls, vitamin D deficiency, increased bone turnover, interval significant decline in bone density) and possible under or overestimation of fracture risk by FRAX. The patient should follow a healthful lifestyle (good nutrition with adequate calcium and vitamin D, and appropriate weight-bearing exercise). Follow-Up: Consider repeating this study in 2 to 3 years to reassess this patient's status, or sooner if there is some new clinical indication. Reported by: ARNOLD on 08/13/2024 1:56:00 PM. Reviewed, dictated and finalized at location ATamia SANTANA
--- NOTE | ~2024-08-13 | MM_ITS ---
EXAMINATION: MM screening jessie BI w cricket HISTORY: Screening mammogram TECHNIQUE: Craniocaudal and mediolateral oblique 3-D tomosynthesis images were obtained and synthetic 2-D images were generated. CAD analysis was submitted and interpreted. COMPARISON: 03/16/2023, 02/02/2022, 01/28/2022, 01/25/2021 BREAST PARENCHYMAL COMPOSITION:Dense: The breasts are heterogeneously dense, which may obscure small masses. FINDINGS: No suspicious mass, calcification, or architectural distortion are identified in either shanae ast to suggest malignancy. There has been no suspicious interval change. IMPRESSION: No mammographic evidence of malignancy. Recommend routine screening mammography in one year. BI-RADS Category 1: Negative Reviewed, dictated and finalized at location . O VISUAL DIRECTOR
== END 2024-08-13 12:37 | disposition home or self-care (01) ==
PROVIDERS: PCP Family Medicine; Visit Provider Student in an Organized Health Care Education/Training Program
DX: Z12.31 Encounter for screening mammogram for malignant neoplasm of breast (principal); M81.0 Age-related osteoporosis without current pathological fracture
CPT/HCPCS: 77063; 77067; 77080